=== PATIENT | female | born 1965 | race Caucasian/White ===

== ENCOUNTER 2021-10-10 09:59 | Emergency (ER) | payer OTHER, MEDICAID, SELFPAY ==
[2021-10-10] VITALS (10 sets, daily range): BP systolic 175–193; BP diastolic 96–110; PULSE 92–101; RESP 21–38; TEMP 36.6; O2SAT 94–98; BMI 41.2
--- NOTE | 2021-10-10 10:09 | DI.RAD.S_ITS ---
PROCEDURE: XR CHEST 1V INDICATIONS: chest pain TECHNIQUE: One view of the chest was acquired. COMPARISON: None. FINDINGS: Surgical changes and devices: None. Lungs and pleura: Small left pleural effusion is seen with left basilar small infiltrate/atelectasis. Right lung is clear. No gross pneumothorax.. Mediastinum: Mediastinal contours appear normal. Heart size is normal. Bones and chest wall: No suspicious bony lesions. Overlying soft tissues appear unremarkable. IMPRESSION: Small left pleural effusion and left basilar small infiltrate/atelectasis. Dictated by: Keven Aleman M.D. on 10/10/2021 at 11:02 Approved by: Keven Aleman M.D. on 10/10/2021 at 11:06
--- NOTE | 2021-10-10 10:30 | ED_ITS ---
HPI - SOB/Dyspnea General Chief Complaint: Shortness of Breath/Dyspnea Stated Complaint: Trouble breathing, pain in left side Time Seen by Provider: 10/10/21 10:28 Source: patient Mode of arrival: Ambulatory Limitations: no limitations History of Present Illness HPI Narrative: The patient is a smoker. She smokes less than 1 pack per day. She uses albuterol as a rescue inhaler. She ran out of albuterol today, she arrives here with dyspnea. She has increased cough in recent days. The cough is nonproductive. She has no headache, fever, or sore throat. She has no hemoptysis. She has no history of cardiac disease. She denies peripheral edema. While discussing her smoking, she notes her mother of COPD. Related Data Home Medications Medication Instructions Recorded Confirmed Cyclobenzaprine Hydrochloride #0 02/09/10 (CYCLOBENZAPRINE HCL) Promethazine HCl (Phenergan) #0 02/09/10 [BUTALBITAL/APAP] #0 02/09/10 Previous Rx's Medication Instructions Recorded albuterol sulfate 90 mcg/actuation 2 inh INHALATION Q4H PRN #8.5 g 10/10/21 aerosol inhaler doxycycline hyclate 100 mg tablet 100 mg PO BID 7 Days #14 tab 10/10/21 Allergies Allergy/AdvReac Type Severity Reaction Status Date / Time No Known Drug Allergies Allergy Verified 10/10/21 10:31 Review of Systems Constitutional Constitutional: Reports as per HPI, Denies chills, Reports fatigue, Denies fever(s) and Denies headache(s) Eyes Comments: No eye complaints. ENT Ears, Nose, Mouth, and Throat: Denies vertigo, Denies dizziness, Denies headache(s), Denies sinus pressure and Denies sore throat Cardiovascular Cardiovascular: Denies chest pain, Denies rapid heart rate, Denies pedal edema, Denies edema and Reports dyspnea Respiratory Respiratory: Reports cough, Reports dyspnea and Denies wheezing Gastrointestinal Gastrointestinal: Denies change in bowel habits, Denies change in stool character, Denies constipation, Denies nausea and Denies vomiting Musculoskeletal Musculoskeletal: Denies back pain Comments: No lower extremity edema. Integumentary/Breasts Skin/Breast: Denies lesions and Denies rash Neurologic Neurologic: Denies vertigo, Denies dizziness and Denies headache(s) Psychiatric Psychiatric: Denies anxiety Endocrine Endocrine: Reports fatigue Hematologic/Lymphatic On Anticoagulants: No Allergic/Immunologic Allergic/Immunologic: Denies wheezing Patient History Medical History (Updated 10/10/21 @ 11:31 by Pako Kwon MD) RAD (reactive airway disease) Surgical History (Updated 10/10/21 @ 11:26 by Pako Kwon MD) No significant past surgical history Social History Smoking Status: Current every day smoker Smoking Status: Current every day smoker alcohol intake frequency: 0-2 drinks per day Substance Use Type: does not use Exam Initial Vital Signs Initial Vital Signs: Vital Signs Temperature 97.9 F 10/10/21 10:05 Pulse Rate 100 H 10/10/21 10:05 Respiratory Rate 36 H 10/10/21 10:05 Blood Pressure 193/110 H 10/10/21 10:05 Pulse Oximetry 95 10/10/21 10:05 Const General: cooperative and comfortable Orientation: Orientation (Normal) HENIL Head: normocephalic and occipital foramen tenderness Face and sinus: sinuses nontender Mouth: oral mucosae normal Throat: posterior oropharynx normal Eyes General: appearance normal, both eyes and all related structures Neck Neck: No JVD Chest Chest: normal inspection of the chest Resp Effort & Inspection: normal respiratory effort Other: Decreased breath sounds throughout. The wheezes reported by the triage nurse have resolved. Patient subjectively feels better. Cardio Rate: regular rate Rhythm: regular rhythm Heart Sounds: S1 normal, S2 normal, no click, no gallops and no murmurs GI Palpation: soft and No tender Auscultation: normal bowel sounds Back/Spine/Pelvis Back: normal to inspection Skin General: no rashes or lesions noted Neuro General: patient alert, patient awake, patient oriented x3 and no focal motor deficits Extrem General: normal to inspection, full ROM, no pedal edema and no calf tenderness Psych Appearance: grossly normal Course Course Course Narrative: The patient subjectively has improved with single breathing treatment. Auscultating her chest, she leaves the perception of decreased flow. History is suggestive of COPD. CXR is clear, no infiltrate. She is exacerbated with a cough, I have started her on doxycycline. She will be discharged with albuterol and doxycycline. She is strongly advised to immediately give up cigarettes. Orders Ordered: Discontinued Medications Albuterol (Albuterol 2.5 Mg/3 Ml Neb (Adult)) 2.5 mg INH NOW ONE Stop: 10/10/21 10:29 Last Admin: 10/10/21 10:35 Dose: 2.5 mg Documented by: WISAM Doxycycline Hyclate (Doxycycline Hyclate 100 Mg Tablet) 100 mg PO NOW ONE Stop: 10/10/21 11:19 Last Admin: 10/10/21 11:52 Dose: 100 mg Documented by: AFSANEH Vital Signs Vital signs: Vital Signs - 8 hr 10/10/21 10:05 10/10/21 10:06 10/10/21 10:08 Temperature 97.9 F Pulse Rate 100 H 99 H 98 H Respiratory Rate 36 H Blood Pressure 193/110 H 193/110 H Pulse Oximetry 95 97 98 10/10/21 10:15 10/10/21 10:30 10/10/21 10:45 Temperature Pulse Rate 101 H 92 H Respiratory Rate 27 H 36 H Blood Pressure 189/102 H 176/96 H Pulse Oximetry 98 95 96 MDM - SOB/Dyspnea Lab Data Result diagrams: 10/10/21 10:10 10/10/21 10:10 Labs: Lab Results 10/10/21 10/10/21 10/10/21 Range/Units 10:10 10:10 10:10 WBC 10.1 (4.5-11.0) X10^3/uL RBC 5.00 (4.0-5.2) X10^6/uL Hgb 15.6 (12.0-16.0) g/dL Hct 45.6 (36-46) % MCV 91.1 (80-100) fL MCH 31.2 (26-34) PG MCHC 34.2 (30-36) % RDW 13.9 (11.6-14.8) % Plt Count 194 (150-400) X10^3/uL Neut % (Auto) 71.6 (50-75) % Lymph % (Auto) 16.2 L (25-40) % Karnes % (Auto) 10.6 (3-14) % Eos % (Auto) 1.1 L (2-4) % Baso % (Auto) 0.5 (0-2) % Neut # (Auto) 7200 H (9358-2191) /uL Lymph # (Auto) 1600 (7549-5012) /uL Karnes # (Auto) 1100 H (0-900) /uL Eos # (Auto) 100 (0-450) /uL Baso # (Auto) 100 (0-100) /uL PT 10.6 (10.1-12.7) SECONDS INR 1.0 (0.9-1.3) APTT 35 (26.4-36.2) SECONDS Sodium 141 (137-145) mmol/L Potassium 4.4 (3.4-5.1) mmol/L Chloride 104 (98-107) mmol/L Carbon Dioxide 33 H (22-32) mmol/L BUN 11 (7-17) mg/dL Creatinine 0.87 (0.52-1.04) mg/dL Estimated GFR > 60.0 (>60) mL/min BUN/Creatinine Ratio 12.6 (6-22) Glucose 97 (70-100) mg/dL Lactate (0.7-2.1) mmol/L Calcium 9.3 (8.4-10.2) mg/dL Magnesium 2.3 (1.6-2.3) mg/dL Total Bilirubin 0.7 (0.2-1.3) mg/dL AST 80 H (14-36) IU/L ALT 54 H (<35) IU/L Alkaline Phosphatase 90 (38-126) U/L Total Creatine Kinase 45 (30-135) U/L CK-MB (CK-2) TNP CK-MB (CK-2) Rel Index TNP Troponin I < 0.012 (0.01-0.034) ng/mL Total Protein 8.3 H (6.3-8.2) g/dL Albumin 4.8 (3.5-5.0) g/dL Globulin 3.5 (1.7-4.1) g/dL Albumin/Globulin Ratio 1.4 (1.0-2.8) Lipase 107 (23-300) U/L Procalcitonin 0.06 (<0.5) ng/mL Urine RBC (0-5/HPF) Urine WBC (0-5/HPF) Urine Bacteria (None) Ur Culture Indicated? SARS-CoV-2 (PCR) (Negative) 10/10/21 10/10/21 10/10/21 Range/Units 10:10 10:30 11:16 WBC (4.5-11.0) X10^3/uL RBC (4.0-5.2) X10^6/uL Hgb (12.0-16.0) g/dL Hct (36-46) % MCV (80-100) fL MCH (26-34) PG MCHC (30-36) % RDW (11.6-14.8) % Plt Count (150-400) X10^3/uL Neut % (Auto) (50-75) % Lymph % (Auto) (25-40) % Karnes % (Auto) (3-14) % Eos % (Auto) (2-4) % Baso % (Auto) (0-2) % Neut # (Auto) (0633-6218) /uL Lymph # (Auto) (1541-9569) /uL Karnes # (Auto) (0-900) /uL Eos # (Auto) (0-450) /uL Baso # (Auto) (0-100) /uL PT (10.1-12.7) SECONDS INR (0.9-1.3) APTT (26.4-36.2) SECONDS Sodium (137-145) mmol/L Potassium (3.4-5.1) mmol/L Chloride (98-107) mmol/L Carbon Dioxide (22-32) mmol/L BUN (7-17) mg/dL Creatinine (0.52-1.04) mg/dL Estimated GFR (>60) mL/min BUN/Creatinine Ratio (6-22) Glucose (70-100) mg/dL Lactate 1.3 (0.7-2.1) mmol/L Calcium (8.4-10.2) mg/dL Magnesium (1.6-2.3) mg/dL Total Bilirubin (0.2-1.3) mg/dL AST (14-36) IU/L ALT (<35) IU/L Alkaline Phosphatase (38-126) U/L Total Creatine Kinase (30-135) U/L CK-MB (CK-2) CK-MB (CK-2) Rel Index Troponin I (0.01-0.034) ng/mL Total Protein (6.3-8.2) g/dL Albumin (3.5-5.0) g/dL Globulin (1.7-4.1) g/dL Albumin/Globulin Ratio (1.0-2.8) Lipase (23-300) U/L Procalcitonin (<0.5) ng/mL Urine RBC None seen (0-5/HPF) Urine WBC None seen (0-5/HPF) Urine Bacteria None seen (None) Ur Culture Indicated? Cult not indicated SARS-CoV-2 (PCR) Negative (Negative) Urine Dip Bedside Urine Glucose Negative Bedside Urine Bilirubin - Negative Bedside Urine Ketone - Negative Urine Specific Mcalister 1.010 Bedside Urine Occult Blood +/- Bedside Urine pH 7.0 Bedside Urine Protein - Negative Bedside Urine Urobilinogen - Negative Bedside Urine Nitrite - Negative Bedside Urine Leukocytes - Negative Esterase Imaging Data Chest x-ray: Radiologist's Impression: Normal ECG Data Attestation: I personally reviewed and interpreted this ECG as follows: (Normal sinus rhythm. No ectopy. No acute ST wave changes. Normal intervals.) Discharge Plan Departure Patient Disposition: Home Clinical Impression: COPD (chronic obstructive pulmonary disease) Instructions: Chronic Obstructive Pulmonary Disease Activity Restrictions/Additional Instructions: Albuterol 2 puffs every 4 hours as needed for cough, or wheezing. Doxycycline 1 tablet 2 times daily for 7 days. Medications have been forwarded to [facility] in [place]. You should stop smoking tobacco as soon as possible. Establish care with a local medical group. Return here as needed. Prescriptions: New albuterol sulfate 90 mcg/actuation HFA aerosol inhaler 2 inh inhalation Q4H PRN (Reason: shortness of breath or wheezing) Qty: 8.5 3RF doxycycline hyclate 100 mg tablet 100 mg PO BID 7 Days Qty: 14 0RF No Action Cyclobenzaprine Hydrochloride (CYCLOBENZAPRINE HCL) Qty: 0 0RF Promethazine HCl (Phenergan) Qty: 0 0RF [BUTALBITAL/APAP] Qty: 0 0RF Stand Alone Forms: Work Release Note
[2021-10-10] MEDS: ALBUTEROL 2.5 MG/3 ML NEB (ADULT) INH (10:35)
[2021-10-10 10:38] LABS: Add Manual Diff / Slide Review NO; Basophils Absolute Auto 100 /uL (0-100); Basophils Percent Auto 0.5 % (0-2); Eosinophils Absolute Auto 100 /uL (0-450); Eosinophils Percent Auto 1.1 % (2-4); Hematocrit 45.6 % (36-46); Hemoglobin 15.6 g/dL (12.0-16.0); Lymphocytes Absolute Auto 1600 /uL (1100-4500); Lymphocytes Percent Auto 16.2 % (25-40); Mean Corpuscular HGB Conc 34.2 % (30-36); Mean Corpuscular Hemoglobin 31.2 PG (26-34); Mean Corpuscular Volume 91.1 fL (80-100); Monocytes Absolute Auto 1100 /uL (0-900); Monocytes Percent Auto 10.6 % (3-14); Neutrophils Absolute Auto 7200 /uL (1500-7000); Neutrophils Percent Auto 71.6 % (50-75); Platelet Count 194 X10^3/uL (150-400); Red Cell Distribution Width 13.9 % (11.6-14.8); White Blood Cell Count 10.1 X10^3/uL (4.5-11.0)
[2021-10-10 10:43] LABS: Prothrombin Time 10.6 SECONDS (10.1-12.7)
[2021-10-10 10:45] LABS: PTT Partial Thromboplastin Tim 35 SECONDS (26.4-36.2)
[2021-10-10 10:47] LABS: Lactate (Lactic Acid) 1.3 mmol/L (0.7-2.1)
[2021-10-10 10:48] LABS: Alanine Aminotransferase 54 IU/L (<35); Albumin 4.8 g/dL (3.5-5.0); Albumin Globulin Ratio 1.4 (1.0-2.8); Alkaline Phosphatase 90 U/L (38-126); Aspartate Aminotransferase 80 IU/L (14-36); BUN Creatinine Ratio 12.6 (6-22); Bilirubin Total 0.7 mg/dL (0.2-1.3); Blood Urea Nitrogen 11 mg/dL (7-17); Calcium 9.3 mg/dL (8.4-10.2); Carbon Dioxide 33 mmol/L (22-32); Chloride 104 mmol/L (98-107); Creatine Kinase 45 U/L (30-135); Estimated Glomerular Filt Rate > 60.0 mL/min (>60); Globulin 3.5 g/dL (1.7-4.1); Glucose 97 mg/dL (70-100); HEMOLYSIS < 15 (0-50); Lipase 107 U/L (23-300); Magnesium 2.3 mg/dL (1.6-2.3); Potassium 4.4 mmol/L (3.4-5.1); Sodium 141 mmol/L (137-145); Total Protein 8.3 g/dL (6.3-8.2)
[2021-10-10 10:55] LABS: COVID19 -Nasal RAPID Negative (Negative)
[2021-10-10 11:00] LABS: Troponin I < 0.012 ng/mL (0.01-0.034)
[2021-10-10 11:04] LABS: Procalcitonin 0.06 ng/mL (<0.5)
[2021-10-10] MEDS: DOXYCYCLINE HYCLATE 100 MG TABLET PO (11:52)
[2021-10-10 12:02] LABS: Bacteria Urine None Seen; Culture Indicated Urine Cult Not Indicated; RBC Urine None Seen (0-5/HPF); WBC Urine None Seen (0-5/HPF)
== END 2021-10-10 11:59 | disposition home or self-care (01) ==
PROVIDERS: Emergency Provider Emergency Medicine
DX: J44.9 Chronic obstructive pulmonary disease, unspecified (principal); F17.210 Nicotine dependence, cigarettes, uncomplicated; Z20.822 Contact with and (suspected) exposure to COVID-19
CPT/HCPCS: 36415; 71045; 80053; 81003; 81015; 82550; 83605; 83690; 83735; 84145; 84484; 85025; 85610; 85730; 87635; 93005; 93010; 94150; 94640; 99284; C9803; J7613

== ENCOUNTER 2021-10-12 11:03 | Emergency (ER) | payer OTHER, MEDICAID, SELFPAY ==
[2021-10-12] VITALS (31 sets, daily range): BP systolic 130–178; BP diastolic 82–122; PULSE 91–127; RESP 12–60; TEMP 37.1; O2SAT 84–98
--- NOTE | 2021-10-12 11:22 | DI.RAD.S_ITS ---
PROCEDURE: XR CHEST 1V INDICATIONS: shortness of breath TECHNIQUE: One view of the chest was acquired. COMPARISON: [facility], , XR CHEST 1V, 10/10/2021, 10:16. FINDINGS: Surgical changes and devices: None. Lungs and pleura: There is a small to moderate left pleural effusion with consolidation at the left lung base. Findings of increased when compared with the study dated October 10, 2021. Right lung is clear. Mediastinum: Mediastinal contours appear normal. Heart size is normal. Bones and chest wall: No suspicious bony lesions. Overlying soft tissues appear unremarkable. IMPRESSION: Increased left pleural effusion and airspace consolidation when compared with the prior study. Dictated by: Isabella May M.D. on 10/12/2021 at 12:16 Approved by: Isabella May M.D. on 10/12/2021 at 12:17
[2021-10-12] MEDS: ALBUTEROL/IPRATROPIUM 3 ML AMPUL INH (11:30)
[2021-10-12] MEDS: LORazepam 2 MG/ML INJ 1 MG IV (11:30)
[2021-10-12] MEDS: KETOROLAC 30 MG/ML VIAL 15 MG IV (11:32)
[2021-10-12] MEDS: HYDROMORPHONE 1 MG INJ IV ×2 (11:44→16:39)
--- NOTE | 2021-10-12 11:45 | ED_ITS ---
HPI - SOB/Dyspnea General Chief Complaint: Shortness of Breath/Dyspnea Stated Complaint: Anxiety Time Seen by Provider: 10/12/21 11:27 Source: patient and EMS Mode of arrival: EMS Limitations: no limitations History of Present Illness HPI Narrative: Patient is a 56-year-old female with history of COPD and anxiety is a current smoker presenting today with left-sided back pain and anxiety attack. Her she was seen evaluated here on October 10 diagnosed with pneumonia started on doxycycline. She has had nonproductive cough she has had some shortness of breath. However today she started having this left-sided back pain which is worse than normal. It is nonradiating it does not go around her abdomen or down her leg. When she gets pain she starts getting very anxious and she started having anxiety attack. She is currently feeling some chest tightness. No palpitations. Related Data Home Medications Medication Instructions Recorded Confirmed Cyclobenzaprine Hydrochloride #0 02/09/10 (CYCLOBENZAPRINE HCL) Promethazine HCl (Phenergan) #0 02/09/10 [BUTALBITAL/APAP] #0 02/09/10 Previous Rx's Medication Instructions Recorded albuterol sulfate 90 mcg/actuation 2 inh INHALATION Q4H PRN #8.5 g 10/10/21 aerosol inhaler doxycycline hyclate 100 mg tablet 100 mg PO BID 7 Days #14 tab 10/10/21 Allergies Allergy/AdvReac Type Severity Reaction Status Date / Time No Known Drug Allergies Allergy Verified 10/10/21 10:31 Review of Systems Review of Systems Narrative: GENERAL: Denies chills, fatigue, malaise, fever, sweats, travel HEENT: Denies sinus pain, ear pain, sore throat, difficulty swallowing, neck pain RESPIRATORY: see HPI CARDIOVASCULAR: Denies chest pain, palpitations, orthopnea, edema GASTROINTESTINAL: Denies nausea, vomiting, abdominal pain, diarrhea, constipation, melena. : Denies dysuria, frequency, incontinence, hematuria, urinary retention, flank pain. MUSCULOSKELETAL: Back pain, see HPI SKIN: No rash, no erythema, no pruritus NEUROLOGIC: Denies weakness, dizziness, headache, numbness, change in speech, confusion PSYCHIATRIC:+ anxiety 12 point review of systems is negative except for those stated above and HPI Patient History Medical History (Updated 10/12/21 @ 17:31 by Mariela Brock DO) RAD (reactive airway disease) Surgical History (Updated 10/10/21 @ 11:26 by Pako Kwon MD) No significant past surgical history Social History Smoking Status: Current every day smoker Smoking Status: Current every day smoker alcohol intake frequency: 0-2 drinks per day Substance Use Type: does not use Exam Initial Vital Signs Initial Vital Signs: Vital Signs Pulse Rate 127 H 10/12/21 11:12 Respiratory Rate 36 H 10/12/21 11:12 Pulse Oximetry 84 L 10/12/21 11:12 GENERAL: 56-year-old female appears older than stated age tachypneic and in acute distress in no acute distress. HEENT: Head atraumatic,EOMI, pupils reactive, face symmetric, moist mucous membranes CARDIOVASCULAR: Tachycardic regular no murmur RESPIRATORY: Decreased breath sounds bilaterally tachypneic speaking in 1-2 word sentences ABDOMEN: Soft, nontender. Normoactive bowel sounds all 4 quadrants. No gu arding or rebound. : Pain left sideCVA tenderness to palpation EXTREMITIES: Normal range of motion, no clubbing or edema. Neurovascularly intact NEUROLOGICAL: Alert and oriented x4.Normal gait and speech] SKIN: Warm, dry, no laceration, no petechiae, no rashes or lesions. Course Orders Ordered: ED Orders 10/12/21 11:13 EKG-12 Lead Routine 10/12/21 11:15 COVID19 -Nasal swab/Pre-Proc Stat 10/12/21 11:22 XR chest 1V Stat RT Consult Eval and Treat Now 10/12/21 11:40 Complete Blood Count AUTO DIFF Stat Comprehensive Metabolic Panel Stat Lactate (Lactic Acid) Stat NT-proBNP (BNP-Adult 18+) Stat Prothrombin Time INR Stat Troponin & CK Cardiac Panel Stat 10/12/21 12:25 CT angio chest abdomen pelvis Stat Discontinued Medications Albuterol/Ipratropium (Albuterol/Ipratropium 3 Ml Ampul) 3 ml INH NOW ONE Stop: 10/12/21 11:28 Last Admin: 10/12/21 11:30 Dose: 3 ml Documented by: EMERITA Hydromorphone HCl (Hydromorphone 1 Mg Inj) 1 mg IV NOW ONE Stop: 10/12/21 11:42 Last Admin: 10/12/21 11:44 Dose: 1 mg Documented by: EMERITA Hydromorphone HCl (Hydromorphone 0.5 Mg Inj) 0.5 mg IV NOW ONE Stop: 10/12/21 12:02 Last Admin: 10/12/21 12:03 Dose: 0.5 mg Documented by: EMERITA Hydromorphone HCl (Hydromorphone 1 Mg Inj) 1 mg IV NOW ONE Stop: 10/12/21 16:27 Last Admin: 10/12/21 16:39 Dose: 1 mg Documented by: VLADIMIR Levofloxacin (Levaquin) 750 mg in 150 mls @ 100 mls/hr IV NOW ONE Stop: 10/12/21 15:28 Last Infusion: 10/12/21 16:03 Dose: 0 mls/hr Documented by: Admin: 10/12/21 14:14 Dose: 100 mls/hr Documented by: REYNALDO Ketorolac Tromethamine (Ketorolac 30 Mg/Ml Vial) 15 mg IV NOW ONE Stop: 10/12/21 11:28 Last Admin: 10/12/21 11:32 Dose: 15 mg Documented by: EMERITA Lorazepam (Lorazepam 2 Mg/Ml Inj) 1 mg IV NOW ONE Stop: 10/12/21 11:26 Last Admin: 10/12/21 11:30 Dose: 1 mg Documented by: EMERITA Ondansetron HCl (Ondansetron 4 Mg/2 Ml Inj) 4 mg IV NOW ONE Stop: 10/12/21 16:27 Last Admin: 10/12/21 16:39 Dose: 4 mg Documented by: VLADIMIR Vital Signs Vital signs: Vital Signs - 8 hr 10/12/21 11:30 10/12/21 11:31 10/12/21 12:00 Pulse Rate 127 H 127 H 119 H Respiratory Rate 60 H Blood Pressure 147/96 H Pulse Oximetry 93 94 93 10/12/21 12:08 10/12/21 12:24 10/12/21 12:30 Pulse Rate 113 H 100 H 98 H Respiratory Rate 22 16 Blood Pressure 130/82 141/97 H Pulse Oximetry 89 L 92 92 10/12/21 12:31 10/12/21 13:00 10/12/21 13:10 Pulse Rate 98 H 96 H 94 H Respiratory Rate 16 19 Blood Pressure 144/92 H 151/102 H 153/100 H Pulse Oximetry 93 94 93 10/12/21 13:15 10/12/21 13:30 10/12/21 13:46 Pulse Rate 92 H 91 H 91 H Respiratory Rate 13 17 12 Blood Pressure 157/103 H 168/87 H 162/107 H Pulse Oximetry 94 94 94 10/12/21 14:00 10/12/21 14:15 10/12/21 14:29 Pulse Rate 94 H 91 H 95 H Respiratory Rate 16 22 Blood Pressure 164/100 H 151/90 H 178/88 H Pulse Oximetry 95 97 97 10/12/21 14:30 10/12/21 14:45 10/12/21 15:00 Pulse Rate 98 H 94 H 91 H Respiratory Rate 23 16 14 Blood Pressure 174/93 H 169/98 H 173/88 H Pulse Oximetry 98 97 96 10/12/21 15:15 10/12/21 15:30 10/12/21 15:31 Pulse Rate 93 H 105 H 107 H Respiratory Rate 16 21 19 Blood Pressure 167/83 H 171/104 H Pulse Oximetry 96 95 94 10/12/21 16:07 10/12/21 16:10 10/12/21 16:15 Pulse Rate 113 H 104 H 102 H Respiratory Rate 25 H Blood Pressure 171/102 H 168/83 H Pulse Oximetry 92 95 93 10/12/21 16:30 10/12/21 16:31 10/12/21 16:46 Pulse Rate 110 H 108 H 108 H Respiratory Rate Blood Pressure 174/110 H 171/122 H Pulse Oximetry 97 98 10/12/21 16:47 10/12/21 17:00 Pulse Rate 104 H 103 H Respiratory Rate 25 H 21 Blood Pressure 167/84 H 159/85 H Pulse Oximetry 96 94 MDM - SOB/Dyspnea Lab Data Result diagrams: 10/12/21 11:40 10/12/21 11:40 Labs: Lab Results 10/12/21 10/12/21 10/12/21 Range/Units 11:15 11:40 11:40 WBC 12.3 H (4.5-11.0) X10^3/uL RBC 5.33 H (4.0-5.2) X10^6/uL Hgb 16.2 H (12.0-16.0) g/dL Hct 49.1 H (36-46) % MCV 92.1 (80-100) fL MCH 30.3 (26-34) PG MCHC 32.9 (30-36) % RDW 13.9 (11.6-14.8) % Plt Count 292 (150-400) X10^3/uL Neut % (Auto) 80.4 H (50-75) % Lymph % (Auto) 12.5 L (25-40) % [place] % (Auto) 6.0 (3-14) % Eos % (Auto) 0.6 L (2-4) % Baso % (Auto) 0.5 (0-2) % Neut # (Auto) 9900 H (3943-6330) /uL Lymph # (Auto) 1500 (9326-6724) /uL [place] # (Auto) 700 (0-900) /uL Eos # (Auto) 100 (0-450) /uL Baso # (Auto) 100 (0-100) /uL PT 12.1 (10.1-12.7) SECONDS INR 1.1 (0.9-1.3) Sodium (137-145) mmol/L Potassium (3.4-5.1) mmol/L Chloride (98-107) mmol/L Carbon Dioxide (22-32) mmol/L BUN (7-17) mg/dL Creatinine (0.52-1.04) mg/dL Estimated GFR (>60) mL/min BUN/Creatinine Ratio (6-22) Glucose (70-100) mg/dL Lactate (0.7-2.1) mmol/L Calcium (8.4-10.2) mg/dL Total Bilirubin (0.2-1.3) mg/dL AST (14-36) IU/L ALT (<35) IU/L Alkaline Phosphatase (38-126) U/L Total Creatine Kinase (30-135) U/L CK-MB (CK-2) CK-MB (CK-2) Rel Index Troponin I (0.01-0.034) ng/mL NT-Pro-B Natriuret Pep (<125) pg/mL Total Protein (6.3-8.2) g/dL Albumin (3.5-5.0) g/dL Globulin (1.7-4.1) g/dL Albumin/Globulin Ratio (1.0-2.8) SARS-CoV-2 (PCR) Negative (Negative) 10/12/21 10/12/21 10/12/21 Range/Units 11:40 11:40 11:40 WBC (4.5-11.0) X10^3/uL RBC (4.0-5.2) X10^6/uL Hgb (12.0-16.0) g/dL Hct (36-46) % MCV (80-100) fL MCH (26-34) PG MCHC (30-36) % RDW (11.6-14.8) % Plt Count (150-400) X10^3/uL Neut % (Auto) (50-75) % Lymph % (Auto) (25-40) % [place] % (Auto) (3-14) % Eos % (Auto) (2-4) % Baso % (Auto) (0-2) % Neut # (Auto) (6408-4460) /uL Lymph # (Auto) (3351-2587) /uL [place] # (Auto) (0-900) /uL Eos # (Auto) (0-450) /uL Baso # (Auto) (0-100) /uL PT (10.1-12.7) SECONDS INR (0.9-1.3) Sodium 138 (137-145) mmol/L Potassium 4.2 (3.4-5.1) mmol/L Chloride 104 (98-107) mmol/L Carbon Dioxide 27 (22-32) mmol/L BUN 15 (7-17) mg/dL Creatinine 1.17 H (0.52-1.04) mg/dL Estimated GFR 47.8 L (>60) mL/min BUN/Creatinine Ratio 12.8 (6-22) Glucose 161 H (70-100) mg/dL Lactate 1.6 (0.7-2.1) mmol/L Calcium 9.6 (8.4-10.2) mg/dL Total Bilirubin 0.8 (0.2-1.3) mg/dL AST 110 H (14-36) IU/L ALT 113 H (<35) IU/L Alkaline Phosphatase 137 H D (38-126) U/L Total Creatine Kinase 41 (30-135) U/L CK-MB (CK-2) TNP CK-MB (CK-2) Rel Index TNP Troponin I < 0.012 (0.01-0.034) ng/mL NT-Pro-B Natriuret Pep 784 H (<125) pg/mL Total Protein 8.8 H (6.3-8.2) g/dL Albumin 5.0 (3.5-5.0) g/dL Globulin 3.8 (1.7-4.1) g/dL Albumin/Globulin Ratio 1.3 (1.0-2.8) SARS-CoV-2 (PCR) (Negative) Imaging Data CT scan - chest: Radiologist's Impression: PROCEDURE:? CT ANGIO CHEST ABDOMEN PELVIS ? INDICATIONS:? short of breath, left sided back pain ? TECHNIQUE:? Precontrast 5 mm thick sections acquired from the lung apices to the iliac crests.? After the administration of intravenous contrast, 2.5 mm thick sections again acquired from the lung apices to the iliac crests.? Maximum intensity projection (MIP) oblique sagittal and coronal reformats were then acquired.? For radiation dose reduction, the following was used:? automated exposure control.? ? COMPARISON:? None. ? FINDINGS:? Image quality:? Excellent.? ? AORTA:? Mild ascending aortic ectasia measures 4.2 cm smoothly tapers. No evidence of aortic aneurysm or dissection. ? CHEST:? Lungs and pleura:? Loculated left parapneumonic pleural effusion present with associated left lower lobe infiltrate and consolidation.? Right lung and pleural space clear. ? Mediastinum:? Heart size is normal.? No pericardial effusion.? No mediastinal or hilar adenopathy by size criteria.? Central pulmonary arteries are normal in size.? Esophagus is normal in caliber.? No hiatal hernias.? ? Bones and chest wall:? No axillary adenopathy by size criteria.? Thyroid gland unremarkable .? No suspicious bony lesions.? No vertebral body compression fractures.? 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 ? ABDOMEN:? Vasculature:? Celiac trunk and mesenteric arteries are patent.? Renal arteries are also patent.? ? Solid organs:? Liver is diffusely decreased in attenuation without focal mass lesion..? Gallbladder unremarkable .? Biliary system is non dilated.? Pancreas enhances normally.? Spleen is normal in size and enhancement.? No adrenal nodules.? Both kidneys are normal in size and enhancement, without hydronephrosis.? Small 2 cm left renal cysts cortical cyst present.? No hydronephrosis bilaterally. ? Peritoneum and bowel:? No free fluid or air.? Bowel loops are normal in caliber and wall thickness.? Normal appendix identified.? Multiple diverticula arise from the sigmoid colon without evidence of diverticulitis. ? ? Nodes and vessels:? No retroperitoneal or mesenteric adenopathy by size criteria.? Inferior vena cava is normal in morphology.? ? Miscellaneous:? No ventral hernias.? ? ? PELVIS:? Genitourinary:? Bladder wall thickness is normal.? Hysterectomy. ? Miscellaneous:? No inguinal hernias or adenopathy.? No ventral hernias.? ? Bones:? No suspicious bony lesions.? No vertebral body compression fractures.? ? ? IMPRESSION:? ? 1. Mild thoracic ascending aortic ectasia without evidence of focal aneurysm or dissection.? No pulmonary embolism. ? 2. Left lower lobe pulmonary infiltrate with consolidation associated with loculated left parapneumonic effusion. ? 3. Hepatic fatty infiltration, left renal cyst, chronic mid sternal fracture with nonunion Chest x-ray: Radiologist's Impression: PROCEDURE:? XR CHEST 1V ? INDICATIONS:? shortness of breath ? TECHNIQUE:? One view of the chest was acquired.? ? COMPARISON:? [facility], , XR CHEST 1V, 10/10/2021, 10:16. ? FINDINGS:? ? Surgical changes and devices:? None.? ? Lungs and pleura:? There is a small to moderate left pleural effusion with consolidation at the left lung base.? Findings of increased when compared with the study dated October 10, 2021. Right lung is clear. ? Mediastinum:? Mediastinal contours appear normal.? Heart size is normal.? ? Bones and chest wall:? No suspicious bony lesions.? Overlying soft tissues appear unremarkable.? ? IMPRESSION:? Increased left pleural effusion and airspace consolidation when compared with the prior study. ? ? Dictated by: Isabella May M.D. on 10/12/2021 at 12:16 ? ? ECG Data Interpretation: Sinus tachycardia rate 126 [place] interval 120 QRS [address] changes or T- wave inversions MDM Narrative Medical decision making narrative: Patient initially presents with acute distress. Difficulty to COPD exacerbation versus anxiety versus both. She had minimal improvement with a DuoNeb more improvement with pain medication and Ativan. She is having quite a bit of pain in that left flank side. CT angio shows a left-sided parapneumonic effusion loculated. She has mild leukocytosis of 12 without fever or elevated lactate or other signs of sepsis. She also is found have a large ascending aorta without signs of dissection or aneurysm. Patient is requiring Interventional Radiology for drainage of parapneumonic effusion that is loculated which is unavailable at this hospital. Dr. Rodriguez[facility] test results and kindly accepts patient. Discharge Plan Departure Patient Disposition: [facility] Clinical Impression: Parapneumonic effusion Prescriptions: No Action Cyclobenzaprine Hydrochloride (CYCLOBENZAPRINE HCL) Qty: 0 0RF Promethazine HCl (Phenergan) Qty: 0 0RF [BUTALBITAL/APAP] Qty: 0 0RF albuterol sulfate 90 mcg/actuation HFA aerosol inhaler 2 inh inhalation Q4H PRN (Reason: shortness of breath or wheezing) Qty: 8.5 3RF doxycycline hyclate 100 mg tablet 100 mg PO BID 7 Days Qty: 14 0RF
[2021-10-12 11:49] LABS: Add Manual Diff / Slide Review NO; Basophils Absolute Auto 100 /uL (0-100); Basophils Percent Auto 0.5 % (0-2); Eosinophils Absolute Auto 100 /uL (0-450); Eosinophils Percent Auto 0.6 % (2-4); Hematocrit 49.1 % (36-46); Hemoglobin 16.2 g/dL (12.0-16.0); Lymphocytes Absolute Auto 1500 /uL (1100-4500); Lymphocytes Percent Auto 12.5 % (25-40); Mean Corpuscular HGB Conc 32.9 % (30-36); Mean Corpuscular Hemoglobin 30.3 PG (26-34); Mean Corpuscular Volume 92.1 fL (80-100); Monocytes Absolute Auto 700 /uL (0-900); Neutrophils Absolute Auto 9900 /uL (1500-7000); Neutrophils Percent Auto 80.4 % (50-75); Platelet Count 292 X10^3/uL (150-400); Red Blood Cell Count 5.33 X10^6/uL (4.0-5.2); Red Cell Distribution Width 13.9 % (11.6-14.8); White Blood Cell Count 12.3 X10^3/uL (4.5-11.0)
[2021-10-12 11:50] LABS: COVID19 -Nasal RAPID Negative (Negative)
[2021-10-12 11:54] LABS: INR 1.1 (0.9-1.3); Prothrombin Time 12.1 SECONDS (10.1-12.7)
[2021-10-12 11:58] LABS: Lactate (Lactic Acid) 1.6 mmol/L (0.7-2.1)
[2021-10-12 11:59] LABS: Alanine Aminotransferase 113 IU/L (<35); Albumin Globulin Ratio 1.3 (1.0-2.8); Alkaline Phosphatase 137 U/L (38-126); Aspartate Aminotransferase 110 IU/L (14-36); BUN Creatinine Ratio 12.8 (6-22); Bilirubin Total 0.8 mg/dL (0.2-1.3); Blood Urea Nitrogen 15 mg/dL (7-17); Calcium 9.6 mg/dL (8.4-10.2); Carbon Dioxide 27 mmol/L (22-32); Chloride 104 mmol/L (98-107); Estimated Glomerular Filt Rate 47.8 mL/min (>60); Globulin 3.8 g/dL (1.7-4.1); Glucose 161 mg/dL (70-100); HEMOLYSIS < 15 (0-50); Potassium 4.2 mmol/L (3.4-5.1); Sodium 138 mmol/L (137-145); Total Protein 8.8 g/dL (6.3-8.2)
[2021-10-12 12:00] LABS: Creatine Kinase 41 U/L (30-135)
[2021-10-12] MEDS: HYDROMORPHONE 0.5 MG INJ IV (12:03)
[2021-10-12 12:08] LABS: NT-proBNP (BNP-Adult 18+) 784 pg/mL (<125)
[2021-10-12 12:11] LABS: Troponin I < 0.012 ng/mL (0.01-0.034)
--- NOTE | 2021-10-12 12:21 | PC.NURSE ---
Pt diagnosed with pneumonia and new COPD on sunday. Reports sudden onset of left back/side pain around 0900 while in the car with her son. Arrives via EMS, unable to speak in complete sentences. Reports history of panic attacks with severe pain. MD notified, new orders for meds received. Son arrived and is at bedside.
--- NOTE | 2021-10-12 12:25 | DI.CT.S_ITS ---
PROCEDURE: CT ANGIO CHEST ABDOMEN PELVIS INDICATIONS: short of breath, left sided back pain TECHNIQUE: Precontrast 5 mm thick sections acquired from the lung apices to the iliac crests. After the administration of intravenous contrast, 2.5 mm thick sections again acquired from the lung apices to the iliac crests. Maximum intensity projection (MIP) oblique sagittal and coronal reformats were then acquired. For radiation dose reduction, the following was used: automated exposure control. COMPARISON: None. FINDINGS: Image quality: Excellent. AORTA: Mild ascending aortic ectasia measures 4.2 cm smoothly tapers. No evidence of aortic aneurysm or dissection. CHEST: Lungs and pleura: Loculated left parapneumonic pleural effusion present with associated left lower lobe infiltrate and consolidation. Right lung and pleural space clear. Mediastinum: Heart size is normal. No pericardial effusion. No mediastinal or hilar adenopathy by size criteria. Central pulmonary arteries are normal in size. Esophagus is normal in caliber. No hiatal hernias. Bones and chest wall: No axillary adenopathy by size criteria. Thyroid gland unremarkable . No suspicious bony lesions. No vertebral body compression fractures. 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 Renal arteries are also patent. Solid organs: Liver is diffusely decreased in attenuation without focal mass lesion.. Gallbladder unremarkable . Biliary system is non dilated. Pancreas enhances normally. Spleen is normal in size and enhancement. No adrenal nodules. Both kidneys are normal in size and enhancement, without hydronephrosis. Small 2 cm left renal cysts cortical cyst present. No hydronephrosis bilaterally. Peritoneum and bowel: No free fluid or air. Bowel loops are normal in caliber and wall thickness. Normal appendix identified. Multiple diverticula arise from the sigmoid colon without evidence of diverticulitis. Nodes and vessels: No retroperitoneal or mesenteric adenopathy by size criteria. Inferior vena cava is normal in morphology. Miscellaneous: No ventral hernias. PELVIS: Genitourinary: Bladder wall thickness is normal. Hysterectomy. Miscellaneous: No inguinal hernias or adenopathy. No ventral hernias. Bones: No suspicious bony lesions. No vertebral body compression fractures. IMPRESSION: 1. Mild thoracic ascending aortic ectasia without evidence of focal aneurysm or dissection. No pulmonary embolism. 2. Left lower lobe pulmonary infiltrate with consolidation associated with loculated left parapneumonic effusion. 3. Hepatic fatty infiltration, left renal cyst, chronic mid sternal fracture with nonunion Approved by: Nadeem Baker M.D. on 10/12/2021 at 11:46
[2021-10-12] MEDS: levoFLOXacin 750 MG/150 ML PIGGYBACK 100 MG IV (14:14)
[2021-10-12] MEDS: ONDANSETRON 4 MG/2 ML INJ IV (16:39)
== END 2021-10-12 17:33 | disposition short-term general hospital (02) ==
PROVIDERS: Emergency Provider Emergency Medicine
DX: J90 Pleural effusion, not elsewhere classified (principal); F17.200 Nicotine dependence, unspecified, uncomplicated; R00.0 Tachycardia, unspecified; Z20.822 Contact with and (suspected) exposure to COVID-19
CPT/HCPCS: 36415; 71045; 71275; 74174; 80053; 82550; 83605; 83880; 84484; 85025; 85610; 87635; 93005; 93010; 94640; 96365; 96366; 96375; 96376; 99285; C9803; J1170; J1885; J1956; J2060; J2405; Q9967

== ENCOUNTER 2023-01-20 13:16 | Emergency (ER) | payer OTHER, MEDICAID, SELFPAY ==
[2023-01-20 13:40] VITALS: BP 135/81; PULSE 77; RESP 16; TEMP 36.7; O2SAT 98; BMI 43.9
[2023-01-20] MEDS: FLUORESCEIN 1 MG STRIP EYE-BOTH (14:16)
[2023-01-20] MEDS: PROPARACAINE 0.5% OPHTH SOL 1 DROPS EYE-BOTH (14:16)
--- NOTE | 2023-01-20 16:09 | ED_ITS ---
HPI - Eye Problem General Chief complaint: Eye Problems Stated complaint: lt eye swelling/ redness Time Seen by Provider: 01/20/23 14:45 Source: patient Mode of arrival: Ambulatory Limitations: no limitations History of Present Illness HPI Narrative: This is a 57-year-old female with history of COPD, anxiety who had prior parapneumonic effusion with thoracentesis in October 2021. Patient presents today with redness swelling and discomfort in her left as well as some redness of the soft tissue around. Started moving over to the right side. Patient states it has been going on for about 3 days, she states she is had crusting and some purulent drainage. Subjective fever, some blurred vision particularly in the left versus right. Pain and discomfort as well as irritation. Some nausea but no vomiting. Patient states some nasal congestion. Patient wears glasses, bifocals no contacts. She is never had any surgeries, injections or any other interventions to her eyes. She normally follows with the associate automation engineer or commercial real estate broker at [facility]. Patient states she has not had similar symptoms recently. She does work as manager construction and states he is touching a lot of different objects and sometimes very dirty work environments. She did not appreciate any chemical exposures or splashes to her eyes. Pain has been relative slowly progressive over time. She is had some relief with cool compresses. Allergies to codeine. She does use tobacco, occasional alcohol, no illicit. Related Data Home Medications Medication Instructions Recorded Confirmed Cyclobenzaprine Hydrochloride ##0 02/09/10 (CYCLOBENZAPRINE HCL) Promethazine HCl (Phenergan) ##0 02/09/10 [BUTALBITAL/APAP] ##0 02/09/10 Previous Rx's Medication Instructions Recorded albuterol sulfate 90 mcg/actuation 2 inh inhalation Q4H PRN shortness 10/10/21 aerosol inhaler of breath or wheezing #8.5 grams amoxicillin 875 mg-potassium 1 tab PO BID #14 tabs 01/20/23 clavulanate 125 mg tablet Allergies Allergy/AdvReac Type Severity Reaction Status Date / Time codeine AdvReac Severe Hives Verified 01/20/23 13:40 Review of Systems Review of Systems ROS Unobtainable: All systems reviewed & are unremarkable except as noted in HPI and below Patient History Medical History RAD (reactive airway disease) Surgical History No significant past surgical history Social History Smoking Status: Current every day smoker Smoking Status: Current every day smoker alcohol intake frequency: 0-2 drinks per day Substance Use Type: does not use Exam Narrative Exam Narrative: GEN: well nourished, well appearing female, alert and oriented x 3, patient appears to be in mild distress. HEENT: Atraumatic, pupils are equal round reactive to light, extraocular movements are intact, patient has some mild nasal congestion, Throat is clear without any exudates, erythema, tonsillar enlargement or uvular deviation Visual acuity: right [20/40], left [20/50] with correction. Patient had on her glasses 20/40 bilaterally. IOP: Right 20 mm Hg, Left 24 mm Hg, patient was quite uncomfortable keeping eyelid open trying to get the pressure with the left eye several attempts were made but likely affected left pressure. Eye is soft. General: no globe trauma Eyelids: normal inspection, eyelids everted for exam on bilaterally. Conjunctiva/Sclera: Patient has injected conjunctiva and little bit on the sclera on the right, patient has significant injection of conjunctiva, sclera with some chemosis. Corneas: normal inspection, examined with fluroscein bilaterally. Patient has some mild uptake over the sclera on the right, none over the cornea. Over the left patient has some punctate uptake throughout the sclera. No ulceration or laceration appreciated, patient does have some easy uptake over the cornea but clearly localized area. Negative for waterfall sign. EOM: intact, no palsy/entrapment Pupils: PERRL, normal accomadation, pupil normal Anterior Chambers: normal inspection, no hypema Posterior: normal funduscopic bilaterally but difficult. HEART: Regular rate and rhythm without murmur, clicks, rubs. LUNGS:Lungs clear to auscultation, no wheezes, rales, crackles, chest moves symmetrically ABD:bowel sounds normal, soft, non-tender, no guarding, rebound, rigidity, no masses noted, no hepatosplenomegaly MSCL: Non-tender, no muscle atrophy, muscles strength 5/5 upper and lower extremities, full range of motion, normal gait NEURO:CN 2-12 intact, sensation normal SKIN: Patient has a mild erythema and slight periorbital swelling on the left, patient is easily able to open her eyelids. No erythema other than just on the right lower lid. Initial Vital Signs Initial Vital Signs: Vital Signs Temperature 98.0 F 01/20/23 13:40 Pulse Rate 77 01/20/23 13:40 Respiratory Rate 16 01/20/23 13:40 Blood Pressure 135/81 01/20/23 13:40 Pulse Oximetry 98 01/20/23 13:40 Oxygen Delivery Method Room Air 01/20/23 13:40 Course Orders Ordered: Discontinued Medications Amoxicillin/Clavulanate Potassium (Amoxicillin/Clav 875/125 Mg) 1 tab PO NOW ONE Stop: 01/20/23 17:03 Last Admin: 01/20/23 17:08 Dose: 1 tab Documented By: MARCIA Ciprofloxacin (Ciprofloxacin 250 Mg Tablet) 500 mg PO NOW ONE Stop: 01/20/23 17:00 Last Admin: 01/20/23 17:10 Dose: Not Given Documented By: MARCIA Fluorescein Sodium (Fluorescein 1 Mg Strip) 1 mg EYE-BOTH NOW ONE Stop: 01/20/23 13:47 Last Admin: 01/20/23 14:16 Dose: 1 mg Documented By: JAIME Ofloxacin (Ofloxacin 0.3% Ophth Prepack) 1 bottle MISC SEEINSTR ONE Stop: 01/20/23 16:57 Last Admin: 01/20/23 17:08 Dose: 2 drop Documented By: MARCIA Proparacaine HCl (Proparacaine 0.5% Ophth Marilee) 1 drops EYE-BOTH NOW ONE Stop: 01/20/23 13:46 Last Admin: 01/20/23 14:16 Dose: 1 drop Documented By: JAIME Tramadol HCl (Tramadol 50 Mg Prepack) 1 bottle MISC SEEINSTR ONE Stop: 01/20/23 16:57 Last Admin: 01/20/23 17:07 Dose: 1 bottle Documented By: MARCIA Vital Signs Vital signs: Vital Signs - 8 hr 01/20/23 13:40 01/20/23 17:07 Temperature 98.0 F Pulse Rate 77 72 Respiratory Rate 16 Blood Pressure 135/81 145/81 H Pulse Oximetry 98 98 Oxygen Delivery Method Room Air Room Air MDM - Eye Problem MDM Narrative Medical decision making narrative: This is a 57-year-old female who comes with complaint of increasing pain and discomfort initially in the left now on the right. Patient has quite a bit of conjunctival change and some scleral edema on the left fluorescein shows some hazy uptake over the cornea but punctate throughout on both sclera. Patient's pressure was 20 on right 24 on the left but patient also had a very hard time keeping her eyelids open did attempt several times. Patient has some mild cellulitic changes upper and lower lids. Full range of motion no intra-ocular pain suggestive of orbital cellulitis. Patient and I discussed she is 20/50 left 20/40 on the right. Discussed short-term follow-up with ophthalmology. Starting antibiotic eye drops with oral antibiotic and strict return precautions. If patient's symptoms are worsening over the next 24 hours or if she is having decreased vision she needs to return. Was given referral for Ophthalmology to be seen in the short term. Discharge Plan Departure Patient Disposition: Home Clinical Impression: Conjunctivitis Instructions: DI for Conjunctivitis Activity Restrictions/Additional Instructions: Follow-up with ophthalmology on Sunday. Call the office for an appointment 1st thing. Referral is included a local ophthalmology if you can not get into your associate automation engineer. You appear to have infection in your eye, there is no abrasion or ulceration of the cornea but there is some hazy uptake of fluorescein. It is important that you see the associate automation engineer to make sure that this is improving and not worsening as it can impact your vision permanently if not treated properly. You can use cool moist cloth to the affected eyes regularly throughout the day and evening. Good hand hygiene, avoiding touching your eyes and other objects is important, as well as washing washcloth, pillow cases or similar objects after use. Use antibiotic eye drops to bilateral eyes, 2 drops every 4 hours while awake (at least 4 times daily) Take oral antibiotics until gone. You may take 1-2 tablets of pain medication every 6 hours as needed. This medication can make you sleepy do not drive, perform hazardous activities or make any major decisions while taking it. This medication will make you constipated please take a stool softener once to twice daily until stools are soft and regular. Prescription for oral antibiotics sent to [facility]. Please return for fevers, increasing redness or swelling, decreasing vision, increasing pain, pain with movement of your eye, severe headaches, fevers, nausea vomiting or other new or concerning changes. Prescriptions: New amoxicillin-pot clavulanate 875-125 mg tablet 1 tab PO BID Qty: 14 0RF No Action Cyclobenzaprine Hydrochloride (CYCLOBENZAPRINE HCL) Qty: 0 Promethazine HCl (Phenergan) Qty: 0 [BUTALBITAL/APAP] Qty: 0 albuterol sulfate 90 mcg/actuation HFA aerosol inhaler 2 inh inhalation Q4H PRN (Reason: shortness of breath or wheezing) Qty: 8.5 3RF Referrals: Luis Fernando Newell MD [Physician] - Stand Alone Forms: Patient Portal/API, Work Release Note
[2023-01-20 17:07] VITALS: BP 145/81; PULSE 72; O2SAT 98
[2023-01-20] MEDS: TRAMADOL 50 MG PREPACK 1 BOTTLE MISC (17:07)
[2023-01-20] MEDS: OFLOXACIN 0.3% OPHTH PREPACK 1 BOTTLE MISC (17:08)
[2023-01-20] MEDS: AMOXICILLIN/CLAV 875/125 MG 1 TAB PO (17:08)
== END 2023-01-20 17:17 | disposition home or self-care (01) ==
PROVIDERS: Emergency Provider Emergency Medicine
DX: H10.9 Unspecified conjunctivitis (principal)
CPT/HCPCS: 99283

== ENCOUNTER → 2023-07-19 17:18 | Outpatient (CLI) | payer OTHER, MEDICAID, SELFPAY ==
--- NOTE | 2023-07-19 17:26 | DI.RAD.S_ITS ---
PROCEDURE: XR CHEST 2V INDICATIONS: Chest congestion TECHNIQUE: 2 views of the chest were acquired. COMPARISON: [facility], CT, CT ANGIO CHEST ABDOMEN PELVIS, 10/12/2021, 12:14. [facility], CR, XR CHEST 1V, 10/12/2021, 11:53. [facility], CR, XR CHEST 1V, 10/10/2021, 10:16. FINDINGS: Surgical changes and devices: None. Lungs and pleura: Lungs are clear. No significant pleural effusions. No pneumothorax. Mediastinum: Mediastinal contours are normal. Heart size is normal. Bones and chest wall: No suspicious bony abnormalities. Soft tissues appear unremarkable. IMPRESSION: No acute cardiopulmonary abnormality is seen. Dictated by: Neel Guzman M.D. on 07/20/2023 at 9:15 Approved by: Neel Guzman M.D. on 07/20/2023 at 9:17
[2023-07-19 17:32] LABS: Add Manual Diff / Slide Review NO; Basophils Absolute Auto 0 /uL (0-100); Basophils Percent Auto 0.6 % (0-2); Eosinophils Absolute Auto 300 /uL (0-450); Hematocrit 41.6 % (36-46); Hemoglobin 14.5 g/dL (12.0-16.0); Lymphocytes Absolute Auto 2300 /uL (1100-4500); Lymphocytes Percent Auto 29.4 % (25-40); Mean Corpuscular HGB Conc 34.7 % (30-36); Mean Corpuscular Hemoglobin 30.5 PG (26-34); Mean Corpuscular Volume 87.7 fL (80-100); Monocytes Absolute Auto 700 /uL (0-900); Monocytes Percent Auto 9.6 % (3-14); Neutrophils Absolute Auto 4400 /uL (1500-7000); Neutrophils Percent Auto 56.4 % (50-75); Platelet Count 217 X10^3/uL (150-400); Red Blood Cell Count 4.75 X10^6/uL (4.0-5.2); Red Cell Distribution Width 13.5 % (11.6-14.8); White Blood Cell Count 7.8 X10^3/uL (4.5-11.0)
[2023-07-19 18:41] LABS: Alanine Aminotransferase 33 IU/L (<35); Albumin 4.3 g/dL (3.5-5.0); Albumin Globulin Ratio 1.3 (1.0-2.8); Alkaline Phosphatase 82 U/L (38-126); Aspartate Aminotransferase 34 IU/L (14-36); Bilirubin Total 0.6 mg/dL (0.2-1.3); Blood Urea Nitrogen 13 mg/dL (7-17); Calcium 9.2 mg/dL (8.4-10.2); Carbon Dioxide 26 mmol/L (22-32); Chloride 102 mmol/L (98-107); Cholesterol 198 mg/dL (140-199); Estimated Glomerular Filt Rate > 60 mL/min (>60); Globulin 3.2 g/dL (1.7-4.1); Glucose 103 mg/dL (70-100); HDL Cholesterol 63 mg/dL (40-60); HEMOLYSIS 23 (0-50); LDL Cholesterol Calculated 57 mg/dL (<100); Potassium 3.9 mmol/L (3.4-5.1); Sodium 136 mmol/L (137-145); Total Protein 7.5 g/dL (6.3-8.2); Triglycerides 392 mg/dL (35-150)
[2023-07-20 16:17] LABS: Hemoglobin A1C% w Est Avg Glu 5.6 % (4.0-6.0)
== END ==
PROVIDERS: PCP Student in an Organized Health Care Education/Training Program; Referring Provider Student in an Organized Health Care Education/Training Program; Visit Provider Student in an Organized Health Care Education/Training Program
DX: J32.9 Chronic sinusitis, unspecified (principal); B96.89 Other specified bacterial agents as the cause of diseases classified elsewhere; J45.909 Unspecified asthma, uncomplicated; Z13.1 Encounter for screening for diabetes mellitus; R09.89 Other specified symptoms and signs involving the circulatory and respiratory systems
CPT/HCPCS: 36415; 71046; 80053; 80061; 83036; 85025

== ENCOUNTER 2023-10-25 14:30 | Outpatient (RCR) | payer OTHER, MEDICAID, SELFPAY ==
--- NOTE | 2023-09-28 15:45 | PT.OIE ---
Current Diagnoses Pain in right knee (09/28/23) Stiffness of right knee, not elsewhere classified (09/28/23) Past Medical History (Last Updated 08/18/23 @ 20:55 by Leela Remy) Anxiety Asthma History of pleural effusion HTN (hypertension) (~2013) TAMMY (obstructive sleep apnea) RAD (reactive airway disease) Past Surgical History (Last Updated 08/18/23 @ 20:55 by Leela Remy) Anesthesia H/O right knee surgery (~12/1995) No significant past surgical history Visit Care Team Role Provider Type Glenda Flores MD Attending Provider Physician Family Provider Primary Care Provider Referring Provider Specialty: Family Practice Obstetrics Address: [address] [place] [address], [facility] Email: [email or web address] Physical Therapy Initial Evaluation PT-OP-A Visit Information Start: 09/28/23 14:26 Freq: Status: Active Protocol: Document 09/28/23 12:00 DCW (Rec: 09/28/23 14:27 DCW [id number]) Out-Patient Physical Therapy Visit Information Visit Information Visit Type Initial Evaluation Visit Start Time 12:00 Visit Stop Time 12:35 Visit Number 1 Number of DEMOLITION ENGINEER Visits 0 Evaluation Information Evaluation Date 09/28/23 PT-OP-B Current Condition Start: 09/28/23 14:26 Freq: Status: Active Protocol: Document 09/28/23 12:00 DCW (Rec: 09/28/23 15:32 DCW [id number]) Current Condition History of Current Condition Onset Date Two month history Current Complaints R knee pain, stiffness History of Current Condition Pt is a 57 year old female presenting with a two month history of right knee pain. 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 Noticed in July she was having some knee pain, and then flew to [place] to visit family for the holidays. Has been much more painful even since, notes pain and swelling along joint line. Due to change in gait because of pain , her left hip has also now started bothering her more. Pt reports that in 1995, she suffered a severe injury to this same knee, believes it required an MCL/LCL repair with screws and maybe a plate on her tibia. By the end of her work day, feels she can't do anything, even walk, just goes home and rests her leg. PT-OP-C Subjective Start: 09/28/23 14:26 Freq: Status: Active Protocol: Document 09/28/23 12:00 DCW (Rec: 09/28/23 14:27 DCW [id number]) OP-PT Subjective Patient Comments Patient Comments I push through it, but I'm tearing up by the end of most work days. Patient Reported Progress Worse PT-OP-F Manual Assessment Start: 09/28/23 14:26 Freq: Status: Active Protocol: Document 09/28/23 12:00 DCW (Rec: 09/28/23 15:32 DCW [id number]) Manual Assessments Soft Tissue Assessment Soft Tissue Mobility Assessment Tenderness to palpation 3/4: Wincing and withdraw along right joint line, lateral worse than medial PT-OP-K Range of Motion Start: 09/28/23 14:26 Freq: Status: Active Protocol: Document 09/28/23 12:00 DCW (Rec: 09/28/23 15:32 DCW [id number]) Knee Goniometric Range of Motion Knee Right Patient Position Supine Flexion Active (degrees) 116 Extension Active (degrees) 3 PT-OP-L Special Tests Start: 09/28/23 14:26 Freq: Status: Active Protocol: Document 09/28/23 12:00 DCW (Rec: 09/28/23 15:32 DCW [id number]) Special Tests Knee Special Tests Varus- 25 Degrees Test Results Negative Valgus- 25 Degrees Test Results Negative Posterior Draw Test Results Negative Patella Tap Test Results Positive R Joe Test Test Results Positive R Anterior Draw Test Results Negative PT-OP-M Strength Start: 09/28/23 14:26 Freq: Status: Active Protocol: Document 09/28/23 12:00 DCW (Rec: 09/28/23 15:32 DCW [id number]) Knee Strength Knee Manual Muscle Testing Left Flexion (S2) 4 Good Extension (L3) 4- Good- PT-OP-Q Treatments Start: 09/28/23 14:26 Freq: Status: Active Protocol: Document 09/28/23 12:00 DCW (Rec: 09/28/23 14:29 DCW [id number]) Cardio Equipment Recumbent Bicycle Duration (Minutes) 3 Seat Position 6 Other Partial rotations Therapeutic Exercises Standing Exercises Lunge Standing Exercise Name Mini lunge on step Side right TKE Standing Exercise Name TKE Side right Resistance Lv 2 PT-OP-T Assessment and Plan Start: 09/28/23 14:26 Freq: Status: Active Protocol: Document 09/28/23 12:00 DCW (Rec: 09/28/23 15:45 DCW [id number]) Physical Therapy Assessment Rehab Potential Rehabilitation Potential Fair Evaluation Complexity Number of Personal Factors/Comorbidities 3 or More Number of Body Systems Impaired 3 Clinical Presentation at Evaluation Evolving Impairments Impairments Activity Tolerance,Edema, Functional Activities, Functional Mobility,Pain,ROM, Soft Tissue Mobility,Strength Goals Two Impairment Pt unable to walk further than 1000' without pain following a work day Equipment Operator [employer] Goal (LTG) Pt to be able to tolerate walking >one mile after work in order to continue plan to exercise more in order to lose weight LTG Duration 11/27/23 One Impairment Pt does not have an appropriate home exercise program Short Term Goal (STG) Pt to be independent and compliant with an appropriate HEP STG Duration 10/27/23 Assessment Summary Assessment Pt presents with signs and symptoms consistent with referring diagnosis. Testing today largely suggestive of potential meniscus involvement . All compression through knee significantly positive, increased pain laterally vs medially. Edema around patellar tendon with positive patellar tap test. Pt very sore with attempts at all activities, limited participation on bike and TKE. Pt may benefit from skilled therapy focusing on knee ROM, strengthening, functional mobility, and gait training. If pt does not progress appropriately, pt would likely benefit from further advanced imaging. Physical Therapy Plan Frequency and Duration Frequency of Treatment 2x/Week Plan of Care Start Date 09/28/23 Plan of Care End Date 11/27/23 Therapeutic Interventions Therapeutic Interventions Balance Training,Gait Training ,Home Exercise Program,Joint Mobilizations,Manual Therapy, Neuromuscular Re-education, Patient/Caregiver Education, Self-Care/Home Management,Soft Tissue Mobilization, Therapeutic Activities, Therapeutic Exercises Modalities Cold Pack/Ice Massage,Electric Stimulation,Hot Packs, Ultrasound Next Visit Focus/Plan Next Note Type Treatment Note Next Visit Plan Knee ROM, LE strengthening, gait training
--- NOTE | 2023-09-28 15:46 | PT.OPPOC ---
Physical, Occupational & Speech Therapy At [facility] Current Diagnoses Pain in right knee (09/28/23) Stiffness of right knee, not elsewhere classified (09/28/23) Visit Care Team Role Provider Type Glenda Flores MD Attending Provider Physician Family Provider Primary Care Provider Referring Provider Specialty: Family Practice Obstetrics Address: [address] [place] [address], [facility] Email: [email or web address] Plan Of Care PT-OP-T Assessment and Plan Start: 09/28/23 14:26 Freq: Status: Active Protocol: Document 09/28/23 12:00 DCW (Rec: 09/28/23 15:45 DCW [id number]) Physical Therapy Assessment Rehab Potential Rehabilitation Potential Fair Evaluation Complexity Number of Personal Factors/Comorbidities 3 or More Number of Body Systems Impaired 3 Clinical Presentation at Evaluation Evolving Impairments Impairments Activity Tolerance,Edema, Functional Activities, Functional Mobility,Pain,ROM, Soft Tissue Mobility,Strength Goals Two Impairment Pt unable to walk further than 1000' without pain following a work day Correction Goal (LTG) Pt to be able to tolerate walking >one mile after work in order to continue plan to exercise more in order to lose weight LTG Duration 11/27/23 One Impairment Pt does not have an appropriate home exercise program Short Term Goal (STG) Pt to be independent and compliant with an appropriate HEP STG Duration 10/27/23 Assessment Summary Assessment Pt presents with signs and symptoms consistent with referring diagnosis. Testing today largely suggestive of potential meniscus involvement . All compression through knee significantly positive, increased pain laterally vs medially. Edema around patellar tendon with positive patellar tap test. Pt very sore with attempts at all activities, limited participation on bike and TKE. Pt may benefit from skilled therapy focusing on knee ROM, strengthening, functional mobility, and gait training. If pt does not progress appropriately, pt would likely benefit from further advanced imaging. Physical Therapy Plan Frequency and Duration Frequency of Treatment 2x/Week Plan of Care Start Date 09/28/23 Plan of Care End Date 11/27/23 Therapeutic Interventions Therapeutic Interventions Balance Training,Gait Training ,Home Exercise Program,Joint Mobilizations,Manual Therapy, Neuromuscular Re-education, Patient/Caregiver Education, Self-Care/Home Management,Soft Tissue Mobilization, Therapeutic Activities, Therapeutic Exercises Modalities Cold Pack/Ice Massage,Electric Stimulation,Hot Packs, Ultrasound Next Visit Focus/Plan Next Note Type Treatment Note Next Visit Plan Knee ROM, LE strengthening, gait training Plan of Care Dates Plan of Care Start Date 09/28/23 Plan of Care End Date 11/27/23 Electronically Signed by: Vijay Perez, PT 09/28/23 [id number] If you are in agreement with this Plan of Care, please return a signed and dated copy. I have reviewed this Plan of Care and certify that the skilled therapy services above are required to meet the patient?s needs. Physician Signature Date Printed Name and Credentials Clinical Instructor Signature Printed Name and Credentials
--- NOTE | 2023-10-18 15:13 | PT.OTN ---
Current Diagnoses Pain in right knee (10/18/23) Stiffness of right knee, not elsewhere classified (10/18/23) Physical Therapy Treatment Note PT-OP-A Visit Information Start: 09/28/23 14:26 Freq: Status: Active Protocol: Document 10/18/23 14:30 DCW (Rec: 10/18/23 15:12 DCW [id number]) Out-Patient Physical Therapy Visit Information Visit Information Visit Type Treatment Note Visit Start Time 14:30 Visit Stop Time 15:15 Visit Number 2 Number of COMMUNICATIONS SYSTEMS ENGINEER Visits 0 Evaluation Information Evaluation Date 09/28/23 PT-OP-B Current Condition Start: 09/28/23 14:26 Freq: Status: Active Protocol: Document 09/28/23 12:00 DCW (Rec: 09/28/23 15:32 DCW [id number]) Current Condition History of Current Condition Onset Date Two month history Current Complaints R knee pain, stiffness History of Current Condition Pt is a 57 year old female presenting with a two month history of right knee pain. 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 Noticed in July she was having some knee pain, and then flew to [place] to visit family for the holidays. Has been much more painful even since, notes pain and swelling along joint line. Due to change in gait because of pain , her left hip has also now started bothering her more. Pt reports that in 1995, she suffered a severe injury to this same knee, believes it required an MCL/LCL repair with screws and maybe a plate on her tibia. By the end of her work day, feels she can't do anything, even walk, just goes home and rests her leg. PT-OP-C Subjective Start: 09/28/23 14:26 Freq: Status: Active Protocol: Document 10/18/23 14:30 DCW (Rec: 10/18/23 15:12 DCW [id number]) OP-PT Subjective Patient Comments Patient Comments Pt notes she has been having more of a burning sensation along the back of her right knee. Notes she has been feeling better after changing jobs, no longer needs to go up and down stairs. PT-OP-F Manual Assessment Start: 09/28/23 14:26 Freq: Status: Active Protocol: Document 09/28/23 12:00 DCW (Rec: 09/28/23 15:32 DCW [id number]) Manual Assessments Soft Tissue Assessment Soft Tissue Mobility Assessment Tenderness to palpation 3/4: Wincing and withdraw along right joint line, lateral worse than medial PT-OP-K Range of Motion Start: 09/28/23 14:26 Freq: Status: Active Protocol: Document 09/28/23 12:00 DCW (Rec: 09/28/23 15:32 DCW [id number]) Knee Goniometric Range of Motion Knee Right Patient Position Supine Flexion Active (degrees) 116 Extension Active (degrees) 3 PT-OP-L Special Tests Start: 09/28/23 14:26 Freq: Status: Active Protocol: Document 09/28/23 12:00 DCW (Rec: 09/28/23 15:32 DCW [id number]) Special Tests Knee Special Tests Varus- 25 Degrees Test Results Negative Valgus- 25 Degrees Test Results Negative Posterior Draw Test Results Negative Patella Tap Test Results Positive R Joe Test Test Results Positive R Anterior Draw Test Results Negative PT-OP-M Strength Start: 09/28/23 14:26 Freq: Status: Active Protocol: Document 09/28/23 12:00 DCW (Rec: 09/28/23 15:32 DCW [id number]) Knee Strength Knee Manual Muscle Testing Left Flexion (S2) 4 Good Extension (L3) 4- Good- PT-OP-Q Treatments Start: 09/28/23 14:26 Freq: Status: Active Protocol: Document 10/18/23 14:30 DCW (Rec: 10/18/23 15:12 DCW [id number]) Cardio Equipment Recumbent Bicycle Duration (Minutes) 4 Seat Position 6 Other Partial rotations Gym Equipment Shuttle Recovery Unilateral Squats Resistance 25# Shuttle Recovery Platform Stable Bilateral Squats Resistance 50# Shuttle Recovery Platform Stable Therapeutic Ball LTR Exercise Details LTR Ball Size/Color Red - 55 cm Therapeutic Exercises Supine Exercises Single KtC Supine Exercise Name Single KtC Side bilateral Hamstring Stretch Supine Exercise Name HS stretch Side bilateral Bridging Supine Exercise Name Bridging /c adductor ball squeeze Sidelying Exercises Reverse Clamshell Sidelying Exercise Name Reverse Clamshell Clamshell Sidelying Exercise Name Clamshell Side right Standing Exercises Hip Extension Standing Exercise Name Hip Extension Side bilateral Resistance Green Lunge Standing Exercise Name Mini lunge on step Side right Other Exercises Resisted Ambulation Other Exercise Name Resisted side-stepping Side bilateral Resistance Green PT-OP-T Assessment and Plan Start: 09/28/23 14:26 Freq: Status: Active Protocol: Document 10/18/23 14:30 DCW (Rec: 10/18/23 15:12 DCW [id number]) Physical Therapy Assessment Impairments Impairments Activity Tolerance,Edema, Functional Activities, Functional Mobility,Pain,ROM, Soft Tissue Mobility,Strength Goals Two Impairment Pt unable to walk further than 1000' without pain following a work day Debit Agent Goal (LTG) Pt to be able to tolerate walking >one mile after work in order to continue plan to exercise more in order to lose weight LTG Duration 11/27/23 One Impairment Pt does not have an appropriate home exercise program Short Term Goal (STG) Pt to be independent and compliant with an appropriate HEP STG Duration 10/27/23 Assessment Summary Assessment Pt had difficulty getting back in after changing jobs, which limited her availability. Has a better handle on her schedule now, should be able to attend more regularly. Continue to focus on knee and general LE stabilization and strengthening, improve functional mobility, and decrease pain. Physical Therapy Plan Frequency and Duration Frequency of Treatment 2x/Week Plan of Care Start Date 09/28/23 Plan of Care End Date 11/27/23 Therapeutic Interventions Therapeutic Interventions Balance Training,Gait Training ,Home Exercise Program,Joint Mobilizations,Manual Therapy, Neuromuscular Re-education, Patient/Caregiver Education, Self-Care/Home Management,Soft Tissue Mobilization, Therapeutic Activities, Therapeutic Exercises Modalities Cold Pack/Ice Massage,Electric Stimulation,Hot Packs, Ultrasound Next Visit Focus/Plan Next Note Type Treatment Note Next Visit Plan Knee ROM, LE strengthening, gait training
--- NOTE | 2023-10-25 16:14 | PT.OTN ---
Current Diagnoses Pain in right knee (10/25/23) Stiffness of right knee, not elsewhere classified (10/25/23) Physical Therapy Treatment Note PT-OP-A Visit Information Start: 09/28/23 14:26 Freq: Status: Active Protocol: Document 10/25/23 14:26 AB (Rec: 10/25/23 16:14 AB [id number]) Out-Patient Physical Therapy Visit Information Visit Information Visit Note Access Code: [email or web address] Visit Start Time 14:33 Visit Stop Time 15:15 Visit Number [address]CHNICIAN Visits 1 Evaluation Information Evaluation Date 09/28/23 PT-OP-B Current Condition Start: 09/28/23 14:26 Freq: Status: Active Protocol: Document 09/28/23 12:00 DCW (Rec: 09/28/23 15:32 DCW [id number]) Current Condition History of Current Condition Onset Date Two month history Current Complaints R knee pain, stiffness History of Current Condition Pt is a 57 year old female presenting with a two month history of right knee pain. 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 Noticed in July she was having some knee pain, and then flew to [place] to visit family for the holidays. Has been much more painful even since, notes pain and swelling along joint line. Due to change in gait because of pain , her left hip has also now started bothering her more. Pt reports that in 1995, she suffered a severe injury to this same knee, believes it required an MCL/LCL repair with screws and maybe a plate on her tibia. By the end of her work day, feels she can't do anything, even walk, just goes home and rests her leg. PT-OP-C Subjective Start: 09/28/23 14:26 Freq: Status: Active Protocol: Document 10/25/23 14:26 AB (Rec: 10/25/23 16:14 AB [id number]) OP-PT Subjective Patient Comments Patient Comments Right knee 02/12 ambulationg into session without device antalgic pattern, back 7-04/15 PT-OP-F Manual Assessment Start: 09/28/23 14:26 Freq: Status: Active Protocol: Document 09/28/23 12:00 DCW (Rec: 09/28/23 15:32 DCW [id number]) Manual Assessments Soft Tissue Assessment Soft Tissue Mobility Assessment Tenderness to palpation 3/4: Wincing and withdraw along right joint line, lateral worse than medial PT-OP-K Range of Motion Start: 09/28/23 14:26 Freq: Status: Active Protocol: Document 09/28/23 12:00 DCW (Rec: 09/28/23 15:32 DCW [id number]) Knee Goniometric Range of Motion Knee Right Patient Position Supine Flexion Active (degrees) 116 Extension Active (degrees) 3 PT-OP-L Special Tests Start: 09/28/23 14:26 Freq: Status: Active Protocol: Document 09/28/23 12:00 DCW (Rec: 09/28/23 15:32 DCW [id number]) Special Tests Knee Special Tests Varus- 25 Degrees Test Results Negative Valgus- 25 Degrees Test Results Negative Posterior Draw Test Results Negative Patella Tap Test Results Positive R Joe Test Test Results Positive R Anterior Draw Test Results Negative PT-OP-M Strength Start: 09/28/23 14:26 Freq: Status: Active Protocol: Document 09/28/23 12:00 DCW (Rec: 09/28/23 15:32 DCW [id number]) Knee Strength Knee Manual Muscle Testing Left Flexion (S2) 4 Good Extension (L3) 4- Good- PT-OP-Q Treatments Start: 09/28/23 14:26 Freq: Status: Active Protocol: Document 10/25/23 14:26 AB (Rec: 10/25/23 16:14 AB [id number]) Therapeutic Exercises Supine Exercises knee flexion with feet on ball Side bilateral Reps/Minutes 2 minutes Comments Verbal cues Hamstring Stretch Supine Exercise Name HS stretch Side right Reps/Minutes 60 seconds X 2 Sidelying Exercises Reverse Clamshell Reps/Minutes 2X10 Clamshell Reps/Minutes 2X10 Sitting Exercises seated hip abduction with band Side bilateral Resistance light blue level one band Reps/Minutes one minute X 2 Comments Pt ed rationale one minute hold for activation long arc quad Side right Resistance light blue band Reps/Minutes 2 Comments not carmen seated SLR Side right Reps/Minutes X10 Comments Verbal cues seated quad set Side right Reps/Minutes X10 Comments Verbal cues Standing Exercises sit to stand Side bilateral Reps/Minutes 2x2 Comments pt ed use of self tactile cues for hip hinge Manual Therapy Treatment Soft Tissue Mobilization STM right knee Body Location quad, hamstring, medial and lateral right knee, peripatellar are Mobilization Type Cross-Friction,Rolling Intensity/Depth Moderate Body Position Hooklying Comments Superficial at joint line Joint Mobilizations patellar mobilization Joint right patella Direction inf, sup, CW and CCW Grade II Body Position Supine Reps/Duration X8 each direction PT-OP-T Assessment and Plan Start: 09/28/23 14:26 Freq: Status: Active Protocol: Document 10/25/23 14:26 AB (Rec: 10/25/23 16:14 AB [id number]) Physical Therapy Assessment Goals Two Impairment Pt unable to walk further than 1000' without pain following a work day Pharmacologist Goal (LTG) Pt to be able to tolerate walking >one mile after work in order to continue plan to exercise more in order to lose weight LTG Duration 11/27/23 One Impairment Pt does not have an appropriate home exercise program Short Term Goal (STG) Pt to be independent and compliant with an appropriate HEP STG Duration 10/27/23 Assessment Summary Assessment End of session patient rates pain back 5/10 right knee 4/10 . Melinda was able to perform sit to stand with improved movement pattern, increased hip hinge post training. Physical Therapy Plan Frequency and Duration Frequency of Treatment 2x/Week Plan of Care Start Date 09/28/23 Plan of Care End Date 11/27/23 Next Visit Focus/Plan Next Note Type Treatment Note Next Visit Plan Knee ROM, LE strengthening, gait training, possibly mini squat/2 inch step up, progress bands as able for glute strengthening
--- NOTE | 2023-12-26 14:21 | PT.OPDS ---
Current Diagnoses Pain in right knee (10/25/23) Stiffness of right knee, not elsewhere classified (10/25/23) Visit Care Team Role Provider Type Glenda Flores MD Attending Provider Physician Family Provider Primary Care Provider Referring Provider Specialty: Family Practice Obstetrics Address: [address] [place] [address], [id number] Email: [email or web address] Visit Number Visit Number 3 Discharge Summary PT-OP-B Current Condition Start: 09/28/23 14:26 Freq: Status: Active Protocol: Document 09/28/23 12:00 DCW (Rec: 09/28/23 15:32 DCW [id number]) Current Condition History of Current Condition Onset Date Two month history Current Complaints R knee pain, stiffness History of Current Condition Pt is a 57 year old female presenting with a two month history of right knee pain. 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 Noticed in July she was having some knee pain, and then flew to [place] to visit family for the holidays. Has been much more painful even since, notes pain and swelling along joint line. Due to change in gait because of pain , her left hip has also now started bothering her more. Pt reports that in 1995, she suffered a severe injury to this same knee, believes it required an MCL/LCL repair with screws and maybe a plate on her tibia. By the end of her work day, feels she can't do anything, even walk, just goes home and rests her leg. PT-OP-C Subjective Start: 09/28/23 14:26 Freq: Status: Active Protocol: Document 10/25/23 14:26 AB (Rec: 10/25/23 16:14 AB [id number]) OP-PT Subjective Patient Comments Patient Comments Right knee 02/12 ambulationg into session without device antalgic pattern, back 7-9 PT-OP-F Manual Assessment Start: 09/28/23 14:26 Freq: Status: Active Protocol: Document 09/28/23 12:00 DCW (Rec: 09/28/23 15:32 DCW [id number]) Manual Assessments Soft Tissue Assessment Soft Tissue Mobility Assessment Tenderness to palpation 3/4: Wincing and withdraw along right joint line, lateral worse than medial PT-OP-K Range of Motion Start: 09/28/23 14:26 Freq: Status: Active Protocol: Document 09/28/23 12:00 DCW (Rec: 09/28/23 15:32 DCW [id number]) Knee Goniometric Range of Motion Knee Right Patient Position Supine Flexion Active (degrees) 116 Extension Active (degrees) 3 PT-OP-L Special Tests Start: 09/28/23 14:26 Freq: Status: Active Protocol: Document 09/28/23 12:00 DCW (Rec: 09/28/23 15:32 DCW [id number]) Special Tests Knee Special Tests Varus- 25 Degrees Test Results Negative Valgus- 25 Degrees Test Results Negative Posterior Draw Test Results Negative Patella Tap Test Results Positive R Joe Test Test Results Positive R Anterior Draw Test Results Negative PT-OP-M Strength Start: 09/28/23 14:26 Freq: Status: Active Protocol: Document 09/28/23 12:00 DCW (Rec: 09/28/23 15:32 DCW [id number]) Knee Strength Knee Manual Muscle Testing Left Flexion (S2) 4 Good Extension (L3) 4- Good- PT-OP-T Assessment and Plan Start: 09/28/23 14:26 Freq: Status: Active Protocol: Document 12/26/23 14:20 DCW (Rec: 12/26/23 14:21 DCW [id number]) Physical Therapy Assessment Assessment Summary Assessment Pt canceled last two scheduled visits, has not been seen in more than two months, does not have any follow-up visits scheduled. Pt will be discharged from skilled PT at this time, will require a new referral in order to return.
== END 2024-01-02 13:35 ==
LOC: PHYS 14:30
PROVIDERS: Family Provider Student in an Organized Health Care Education/Training Program; PCP Student in an Organized Health Care Education/Training Program; Referring Provider Student in an Organized Health Care Education/Training Program; Visit Provider Student in an Organized Health Care Education/Training Program
DX: M25.561 Pain in right knee (principal); M25.661 Stiffness of right knee, not elsewhere classified
CPT/HCPCS: 97110; 97140; 97161

== ENCOUNTER → 2024-02-28 10:23 | Outpatient (CLI) | payer OTHER, SELFPAY ==
--- NOTE | 2024-02-28 10:25 | DI.RAD.S_ITS ---
PROCEDURE: XR LUMBAR SPINE 2-3V INDICATIONS: Left side hip pain/back pain TECHNIQUE: 3 views of the lumbar spine were acquired. COMPARISON: None. FINDINGS: Bones: 5 [id number] vertebrae are present. There is normal bony alignment. No vertebral body compression fractures. No suspicious bony lesions. Disc space narrowing and sclerotic facet joints noted in the lumbar spine Soft tissues: Overlying bowel gas pattern is normal. No suspicious soft tissue calcifications. IMPRESSION: Degenerative disc disease and arthropathy in the lower lumbar spine Approved by: Nadeem Baker M.D. on 02/28/2024 at 20:25
--- NOTE | 2024-02-28 10:25 | DI.RAD.S_ITS ---
PROCEDURE: XR HIP W PEL IF DONE LT 2V INDICATIONS: Left side hip pain TECHNIQUE: 2 views of the hip were acquired. COMPARISON: None. FINDINGS: Bones: No fractures or dislocations. No suspicious bony lesions. The visualized pelvic ring appears intact. Moderate bilateral hip joint space narrowing Soft tissues: No suspicious soft tissue calcifications or masses. IMPRESSION: Moderate bilateral hip joint space narrowing. No fracture. Approved by: Nadeem Baker M.D. on 02/28/2024 at 20:26
== END ==
PROVIDERS: Family Provider Student in an Organized Health Care Education/Training Program; PCP Student in an Organized Health Care Education/Training Program; Referring Provider Student in an Organized Health Care Education/Training Program; Visit Provider Student in an Organized Health Care Education/Training Program
DX: M47.816 Spondylosis without myelopathy or radiculopathy, lumbar region (principal); M51.36 Other intervertebral disc degeneration, lumbar region; M25.552 Pain in left hip; M54.50 Low back pain, unspecified
CPT/HCPCS: 72100; 73502

== ENCOUNTER → 2024-03-27 11:49 | Outpatient (CLI) | payer OTHER, SELFPAY ==
--- NOTE | 2024-03-27 11:51 | DI.RAD.S_ITS ---
PROCEDURE: XR CERVICAL SPINE 2V OR 3V INDICATIONS: worsening back/neck pain TECHNIQUE: 3 view(s) of the cervical spine were acquired. COMPARISON: None. FINDINGS: Bones: No fractures or dislocations to the T1 level. The lateral masses of C1 appear intact on the odontoid view. No suspicious bony lesions. Hypertrophic facet joints in the mid cervical spine results in grade 1 anterior spondylolisthesis C5-6 Soft tissues: No prevertebral soft tissue swelling. IMPRESSION: Degenerative changes without displaced fracture or traumatic subluxation. Approved by: Nadeem Baker M.D. on 03/27/2024 at 13:36
== END ==
LOC: RAD 11:50
PROVIDERS: Family Provider Student in an Organized Health Care Education/Training Program; PCP Student in an Organized Health Care Education/Training Program; Referring Provider Student in an Organized Health Care Education/Training Program; Visit Provider Student in an Organized Health Care Education/Training Program
DX: M47.812 Spondylosis without myelopathy or radiculopathy, cervical region (principal); M43.12 Spondylolisthesis, cervical region; M54.2 Cervicalgia; M54.9 Dorsalgia, unspecified
CPT/HCPCS: 72040

== ENCOUNTER → 2024-06-03 12:32 | Outpatient (CLI) | payer OTHER, SELFPAY ==
[2024-06-03 13:16] LABS: Add Manual Diff / Slide Review NO; Basophils Absolute Auto 0 /uL (0-100); Basophils Percent Auto 0.6 % (0-2); Eosinophils Absolute Auto 200 /uL (0-450); Eosinophils Percent Auto 3.6 % (2-4); Hematocrit 39.2 % (36-46); Hemoglobin 13.3 g/dL (12.0-16.0); Lymphocytes Absolute Auto 1800 /uL (1100-4500); Lymphocytes Percent Auto 29.5 % (25-40); Mean Corpuscular Hemoglobin 30.4 PG (26-34); Mean Corpuscular Volume 89.5 fL (80-100); Monocytes Absolute Auto 600 /uL (0-900); Monocytes Percent Auto 9.3 % (3-14); Neutrophils Absolute Auto 3400 /uL (1500-7000); Platelet Count 216 X10^3/uL (150-400); Red Blood Cell Count 4.38 X10^6/uL (4.0-5.2); Red Cell Distribution Width 13.8 % (11.6-14.8)
[2024-06-03 13:34] LABS: Alanine Aminotransferase 25 IU/L (<35); Albumin 4.3 g/dL (3.5-5.0); Albumin Globulin Ratio 1.6 (1.0-2.8); Alkaline Phosphatase 71 U/L (38-126); Aspartate Aminotransferase 27 IU/L (14-36); Bilirubin Total 0.5 mg/dL (0.2-1.3); Blood Urea Nitrogen 18 mg/dL (7-17); Calcium 9.5 mg/dL (8.4-10.2); Carbon Dioxide 32 mmol/L (22-32); Chloride 103 mmol/L (98-107); Cholesterol 201 mg/dL (140-199); Estimated Glomerular Filt Rate > 60 mL/min (>60); Globulin 2.7 g/dL (1.7-4.1); Glucose 85 mg/dL (70-100); HDL Cholesterol 67 mg/dL (40-60); HEMOLYSIS < 15 (0-50); LDL Cholesterol Calculated 67 mg/dL (<100); Potassium 4.4 mmol/L (3.4-5.1); Sodium 139 mmol/L (137-145); Triglycerides 334 mg/dL (35-150)
[2024-06-03 13:37] LABS: Hemoglobin A1C% w Est Avg Glu 5.7 % (4.0-6.0)
[2024-06-03 14:10] LABS: TSH w/ Reflex to FT4 0.78 uIU/mL (0.47-4.68)
== END ==
PROVIDERS: Family Provider Student in an Organized Health Care Education/Training Program; PCP Student in an Organized Health Care Education/Training Program; Referring Provider Student in an Organized Health Care Education/Training Program; Visit Provider Student in an Organized Health Care Education/Training Program
DX: E66.01 Morbid (severe) obesity due to excess calories (principal); Z68.41 Body mass index [BMI] 40.0-44.9, adult; I10 Essential (primary) hypertension
CPT/HCPCS: 36415; 80053; 80061; 83036; 84443; 85025

== ENCOUNTER 2024-12-11 13:58 | Outpatient (CLI) | payer OTHER, SELFPAY ==
[2024-12-11] VITALS (9 sets, daily range): BP systolic 129–190; BP diastolic 81–98; PULSE 81–91; RESP 13–18; TEMP 36.5; O2SAT 95–100
[2024-12-11] MEDS: MIDAZOLAM 2 MG/2 ML VIAL IV ×2 (15:16→15:22)
[2024-12-11] MEDS: iopamidoL 15 ML VIAL 3 ML INJ (15:18)
[2024-12-11] MEDS: DEXAMETHASONE 10 MG/ML VIAL INJ (15:19)
[2024-12-11] MEDS: BETAMETHASONE 30 MG/5 ML MDV 12 MG INJ (15:19)
[2024-12-11] MEDS: BUPIVACAINE 0.25% (PF) VIAL 2 ML INJ (15:22)
--- NOTE | 2024-12-11 15:34 | P.PCN_ITS ---
Date/Time/Diagnoses Date of procedure: 12/11/24 Time of procedure: 15:34 Pre-procedure diagnosis: 1. FORAMINAL STENOSIS WITH LE SYMPTOMS Post-procedure diagnosis: same Procedure Notes Procedure: 1. FLUOROSCOPICALLY GUIDED CONTRAST CONTROLLED TRANSFORAMINAL EPIDURAL STEROID INJECTION - LEFT L4/5 Indications: Melinda is referred by Dr. Flores for treatment of Foraminal Stenosis with Left LE Symptoms Physician: Pako Diaz Total Fluoroscopy time (seconds): 9 Total sedation minutes: 15 Complications: none Procedure in detail & Post-procedure care: FINDINGS Foraminal Nerve Root Compression secondary to disc disease and facet hypertrophy DESCRIPTION OF PROCEDURE Following review of allergy and review of potential side effects and complications, including, but not necessarily limited to, infection, allergic reaction, local tissue breakdown, stroke, temporary or permanent nerve injury, paralysis, and possible , the patient indicated that the patient understood and agreed to proceed. An informed consent document was signed by the patient, witnessed by a nurse, and placed in the patient's chart. Additionally, other treatment options including medications, modalities, and physical therapy were reviewed with the patient. After review of previous anaesthesic history and IV conscious sedation the patient was deemed safe to proceed with today?s procedure with IV conscious sedation as ASA class II designation. Safety time-out was performed to confirm patient ID, procedure to be performed and site of procedure. IV sedation was accomplished with a combination of 2mg of Versed and 50mcg of Fentanyl administered by the RN after DO order, titrated to patient comfort during the course of the procedure while the patient remained responsive to all verbal commands In the prone position following sterile prep and drape of the lumbar region, the left L4/5 posterior neuroforamen was identified fluoroscopically. The skin was anesthetized via a 25-gauge 1.5-inch needle with 1% lidocaine solution. At this point, a 25-gauge 3.5-inch spinal needle was atraumatically introduced and advanced under fluoroscopic guidance through the posterior left L4/5 neuroforam en to approximately the anterior aspect of the canal. Depth was confirmed on lateral view. Following negative aspiration, injection of approximately 1.5 cc of Isovue 200 under live fluoroscopy in the AP view confirmed excellent flow along the nerve root, into the epidural space without vascular or intrathecal uptake observed Radiological data, including multiple fluoroscopic views of the lumbosacral spine, reveal a spinal needle at the left L4/5 posterior neuroforamen. Subsequent views show flow of contrast material flowing superiorly and inferiorly along the nerve root confirming epidural flow. Subsequently, a test dose of 1.5 cc of 1% lidocaine solution was administered and patient was observed for two minutes for signs or symptoms of complications, including abdominal pain, shortness of breath, bilateral upper or lower extremity weakness, nausea and vomiting, prior to steroid injection. At this point, a total of 3cc or 10mg of dexamethasone and 12mg of betamethasone was in jected without incident. The procedure tolerated the procedure well without signs or symptoms of complications prior to transfer to the recovery area continued monitoring without incident. The patient was then transferred to the recovery area where they were observed for an appropriate time after the injection. The patient reported a VAS score of 7 prior to the procedure and a post-procedu re VAS of 0. POST OP INSTRUCTIONS The patient was provided a Pain Log to continue to record their response to the target-specific procedure prior to follow-up visit with their referring physician. Additionally, specific post-injection care instructions and a contact number to our office were provided if concerns arise regarding possible complications associated with the procedure are suspected.
== END 2024-12-11 15:52 | disposition home or self-care (01) ==
LOC: RAD 13:59
PROVIDERS: Family Provider Student in an Organized Health Care Education/Training Program; PCP Student in an Organized Health Care Education/Training Program; Referring Provider Physical Medicine & Rehabilitation; Visit Provider Physical Medicine & Rehabilitation
DX: M48.061 Spinal stenosis, lumbar region without neurogenic claudication (principal); M51.16 Intervertebral disc disorders with radiculopathy, lumbar region; M47.26 Other spondylosis with radiculopathy, lumbar region
CPT/HCPCS: 64483; 99152; J0702; J1100; J2250; J3490

== ENCOUNTER → 2025-01-08 09:24 | Outpatient (CLI) | payer OTHER, SELFPAY ==
[2025-01-08 09:43] LABS: Add Manual Diff / Slide Review NO; Basophils Absolute Auto 0 /uL (0-100); Basophils Percent Auto 0.6 % (0-2); Eosinophils Absolute Auto 200 /uL (0-450); Eosinophils Percent Auto 3.7 % (2-4); Hematocrit 40.6 % (36-46); Hemoglobin 13.7 g/dL (12.0-16.0); Lymphocytes Absolute Auto 1500 /uL (1100-4500); Lymphocytes Percent Auto 30.6 % (25-40); Mean Corpuscular HGB Conc 33.8 % (30-36); Mean Corpuscular Hemoglobin 29.8 PG (26-34); Mean Corpuscular Volume 88.1 fL (80-100); Monocytes Absolute Auto 500 /uL (0-900); Monocytes Percent Auto 9.2 % (3-14); Neutrophils Absolute Auto 2800 /uL (1500-7000); Neutrophils Percent Auto 55.9 % (50-75); Platelet Count 227 X10^3/uL (150-400); Red Blood Cell Count 4.61 X10^6/uL (4.0-5.2); Red Cell Distribution Width 14.2 % (11.6-14.8)
[2025-01-08 09:59] LABS: Hemoglobin A1C% w Est Avg Glu 5.1 % (4.0-6.0)
[2025-01-08 10:13] LABS: Alanine Aminotransferase 22 IU/L (<35); Albumin 4.6 g/dL (3.5-5.0); Albumin Globulin Ratio 1.9 (1.0-2.8); Alkaline Phosphatase 66 U/L (38-126); Aspartate Aminotransferase 26 IU/L (14-36); BUN Creatinine Ratio 21.7 (6-22); Bilirubin Total 0.6 mg/dL (0.2-1.3); Blood Urea Nitrogen 18 mg/dL (7-17); Calcium 9.4 mg/dL (8.4-10.2); Carbon Dioxide 30 mmol/L (22-32); Chloride 102 mmol/L (98-107); Cholesterol 212 mg/dL (140-199); Estimated Glomerular Filt Rate > 60 mL/min (>60); Globulin 2.4 g/dL (1.7-4.1); Glucose 87 mg/dL (70-99); HDL Cholesterol 87 mg/dL (40-60); HEMOLYSIS < 15 (0-50); LDL Cholesterol Calculated 99 mg/dL (<100); Potassium 4.2 mmol/L (3.4-5.1); Sodium 139 mmol/L (137-145); Triglycerides 132 mg/dL (35-150)
== END ==
PROVIDERS: PCP Student in an Organized Health Care Education/Training Program; Referring Provider Student in an Organized Health Care Education/Training Program; Visit Provider Student in an Organized Health Care Education/Training Program
DX: E66.9 Obesity, unspecified (principal); I10 Essential (primary) hypertension; E78.5 Hyperlipidemia, unspecified
CPT/HCPCS: 36415; 80053; 80061; 83036; 85025